=== PATIENT | female | born 1975 | race American Indian/Alaskan Native ===

== ENCOUNTER 2018-04-20 14:02 | Emergency (ER) | payer MEDICAID ==
[2018-04-20 14:26] VITALS: BP 141/84
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
--- NOTE | 2018-04-20 15:05 | XRay Report ---
LEFT ANKLE RADIOGRAPHS INDICATION: Pain. COMPARISON: None similar at this institution. FINDINGS: AP, lateral and oblique left ankle radiographs demonstrate intact mortise, malleoli and talar dome contour. Mild diffuse overlying soft tissue swelling though possible, lateral more than medial. Approximately 8 mm somewhat prominent posterior talar process. Moderate plantar and dorsal calcaneal spurs with mild anterior and posterior tibial plafond degenerative spurring also noted. CONCLUSION: Few degenerative changes noted with questionable soft tissue swelling, as described. Please correlate. Thank you for the opportunity to participate in this patient's care.
[2018-04-20] MEDS ORDERED: IBUPROFEN PO ONE (15:34)
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
== END 2018-04-20 16:40 | disposition home or self-care (01) ==
LOC: ED 14:02
DX: M76.62 Achilles tendinitis, left leg (principal); I10 Essential (primary) hypertension; Z88.5 Allergy status to narcotic agent; W51.XXXA Accidental striking against or bumped into by another person, initial encounter; Y93.01 Activity, walking, marching and hiking; Y92.89 Other specified places as the place of occurrence of the external cause; Y99.8 Other external cause status

== ENCOUNTER 2019-03-17 09:00 | Emergency (ER) | payer MEDICAID ==
[2019-03-17 09:53] LABS: Basophils % (Auto) 0.3 % (0.0-1.8); Eosinophils % (Auto) 0.5 % (0.0-4.3); Hematocrit 34.6 % (30.3-42.9); Hemoglobin 11.7 gm/dl (10.1-14.3); Lymphocytes # (Auto) 1.9 K/mm3 (1.2-5.4); Lymphocytes % (Auto) 19.8 % (13.4-35.0); Mean Corpuscular HGB Conc 34 % (30-34); Mean Corpuscular Volume 90 fl (79-97); Monocytes # (Auto) 0.8 K/mm3 (0.0-0.8); Monocytes % (Auto) 8.3 % (0.0-7.3); Platelet Count 449 K/mm3 (140-440); Red Blood Count 3.86 M/mm3 (3.65-5.03); Red Cell Distribution Width 13.5 % (13.2-15.2)
[2019-03-17 10:06] LABS: Alanine Aminotransferase 10 units/L (7-56); Albumin 3.5 g/dL (3.9-5); BUN/Creatinine Ratio 33; Blood Urea Nitrogen 13 mg/dL (7-17); Calcium 8.7 mg/dL (8.4-10.2); Hemolysis Index 8
[2019-03-17 10:43] LABS: Amorphous Crystals,Urine 1+; Bilirubin,Urine NEG (Negative); Blood,Urine NEG (Negative); Color,Urine Yellow (Yellow); Mucus,Urine FEW /HPF; Protein,Urine <15 mg/dL mg/dL (Negative)
--- NOTE | 2019-03-17 11:03 | Emergency Department Report ---
ED Abdominal Pain HPI - General Chief Complaint: Abdominal Pain Stated Complaint: VOMIT/STOMACH PAIN Time Seen by Provider: 03/17/19 10:43 Source: patient Mode of arrival: Ambulatory Limitations: No Limitations - History of Present Illness Initial Comments: 43 yo F w/ hx HTN, diverticulitis, presents to ED w/ abdominal pain since this morning. Pt states pain is diffuse. Denies fever, N/V/D, constipation, urinary frequency, dysuria. MD Complaint: abdominal pain -: This morning Location: diffuse Radiation: none Migration to: no migration Severity: moderate Quality: cramping Consistency: constant Improves With: nothing Worsens With: nothing Associated Symptoms: denies: nausea, vomiting, diarrhea, fever, constipation, dysuria - Related Data Previous Rx's Medication Instructions Recorded Last Taken Type Fluticasone [Flonase] 1 spray NS QDAY #1 bottle 04/20/18 Unknown Rx HYDROcodone/APAP 5-325 [[place] 1 each PO Q4HR PRN #12 tablet 04/20/18 Unknown Rx 5/325] Ibuprofen [Motrin] 800 mg PO Q8HR PRN #20 tablet 04/20/18 Unknown Rx Ciprofloxacin HCl [Ciprofloxacin 500 mg PO Q12HR 10 Days #20 tab 03/17/19 Unknown Rx TAB] Dicyclomine [Bentyl] 20 mg PO QID PRN #20 tablet 03/17/19 Unknown Rx Naproxen [Naprosyn] 500 mg PO BID #20 tablet 03/17/19 Unknown Rx metroNIDAZOLE [Flagyl] 500 mg PO Q12HR 10 Days #20 tab 03/17/19 Unknown Rx Allergies Allergy/AdvReac Type Severity Reaction Status Date / Time gabapentin Allergy Unknown Verified 04/20/18 14:27 tramadol Allergy Nausea Verified 04/20/18 14:28 ED Review of Systems ROS: Stated complaint: VOMIT/STOMACH PAIN Other details as noted in HPI Comment: All other systems reviewed and negative Constitutional: denies: chills, fever Gastrointestinal: abdominal pain. denies: nausea, vomiting, diarrhea, constipation Genitourinary: denies: dysuria, frequency ED Past Medical Hx - Past Medical History Previous Medical History?: Yes Hx Hypertension: Yes Additional medical history: diverticulitis - Surgical History Past Surgical History?: No - Social History Smoking Status: Never Smoker Substance Use Type: Alcohol - Medications Home Medications: Home Medications Medication Instructions Recorded Confirmed Last Taken Type Fluticasone [Flonase] 1 spray NS QDAY #1 bottle 04/20/18 Unknown Rx HYDROcodone/APAP 5-325 [[place] 1 each PO Q4HR PRN #12 tablet 04/20/18 Unknown Rx 5/325] Ibuprofen [Motrin] 800 mg PO Q8HR PRN #20 tablet 04/20/18 Unknown Rx Ciprofloxacin HCl [Ciprofloxacin 500 mg PO Q12HR 10 Days #20 tab 03/17/19 Unknown Rx TAB] Dicyclomine [Bentyl] 20 mg PO QID PRN #20 tablet 03/17/19 Unknown Rx Naproxen [Naprosyn] 500 mg PO BID #20 tablet 03/17/19 Unknown Rx metroNIDAZOLE [Flagyl] 500 mg PO Q12HR 10 Days #20 tab 03/17/19 Unknown Rx ED Physical Exam - General Limitations: No Limitations General appearance: alert, in no apparent distress, obese - Head Head exam: Present: atraumatic, normocephalic - Eye Eye exam: Present: normal appearance, EOMI - ENT ENT exam: Present: mucous membranes moist - Neck Neck exam: Present: normal inspection - Respiratory Respiratory exam: Present: normal lung sounds bilaterally. Absent: respiratory distress - Cardiovascular Cardiovascular Exam: Present: regular rate, normal rhythm - GI/Abdominal GI/Abdominal exam: Present: soft, tenderness (mild diffuse). Absent: distended - Extremities Exam Extremities exam: Present: normal inspection - Neurological Exam Neurological exam: Present: alert, oriented X3 - Psychiatric Psychiatric exam: Present: normal affect, normal mood - Skin Skin exam: Present: warm, dry, intact, normal color ED Course Vital Signs 03/17/19 03/17/19 09:16 12:33 Temperature 98.3 F Pulse Rate 70 71 Respiratory 18 16 Rate Blood Pressure 151/96 Blood Pressure 150/90 [Left] O2 Sat by Pulse 98 99 Oximetry ED Medical Decision Making - Lab Data Result diagrams: 03/17/19 09:27 03/17/19 09:27 - Radiology Data Radiology results: report reviewed, image reviewed - Medical Decision Making 43 yo F presents to Ed w/ abdominal pain. Pt with diffuse tenderness on exam. Reports symptoms feel the same as when she was previously diagnosed w/ diverticulitis. Vitals normal except for mildly elevated BP. Pt afebrile. Labs unremarkable. CT shows acute diverticulitis without abscess or perforation. Will discharge w/ prescriptions. GI follow-up advised. Return precautions given. - Differential Diagnosis diverticulitis, UTI, obstruction Critical care attestation.: If time is entered above; I have spent that time in minutes in the direct care of this critically ill patient, excluding procedure time. ED Disposition Clinical Impression: Acute diverticulitis Disposition: TO HOME OR SELFCARE Is pt being admited?: No Condition: Stable Instructions: Abdominal Pain (ED) Prescriptions: Dicyclomine [Bentyl] 20 mg PO QID PRN #20 tablet PRN Reason: abdominal pain Ciprofloxacin HCl [Ciprofloxacin TAB] 500 mg PO Q12HR 10 Days #20 tab metroNIDAZOLE [Flagyl] 500 mg PO Q12HR 10 Days #20 tab Naproxen [Naprosyn] 500 mg PO BID #20 tablet Referrals: PRIMARY CARE, [Primary Care Provider] - 3-5 Days [facility] [Provider Group] - 3-5 Days [facility] [Provider Group] - 3-5 Days Forms: Work/School Release Form(ED) Time of Disposition: 12:19
[2019-03-17] MEDS ORDERED: DICYCLOMINE 20 MG TAB PO ONE (11:08)
--- NOTE | 2019-03-17 12:00 | Cat Scan Report ---
CT abdomen pelvis wo con INDICATION / CLINICAL INFORMATION: abd pain, hx diverticulitis. TECHNIQUE: All CT scans at this location are performed using CT dose reduction for ALARA by means of automated e xposure control. COMPARISON: None available. FINDINGS: Limited lower thoracic images are negative. ABDOMEN: The gallbladder, liver, spleen, pancreas and adrenal glands are normal Punctate intrarenal calcifications are seen in the left kidney. No hydronephrosis. Right kidney is normal. Pelvis: The appendix is normal. There are multiple diverticula seen throughout the colon. The sigmoid colon is thickened and edematous with mesenteric edema. The findings would be consistent with acute sigmoid diverticulitis. No dependent fluid collections or pneumoperitoneum. Degenerative changes are seen in the lower thoracic and lumbar spine. IMPRESSION: 1. Acute uncomplicated sigmoid diverticulitis. 2. Left nephrolithiasis without hydronephrosis. Signer Name: Chuckie Ziegler MD Signed: 03/17/2019 11:55 AM Workstation Name: [email or web address]
[2019-03-17 12:34] VITALS: BP 150/90
== END 2019-03-17 12:33 | disposition home or self-care (01) ==
LOC: ED 09:00
DX: K57.92 Diverticulitis of intestine, part unspecified, without perforation or abscess without bleeding (principal); I10 Essential (primary) hypertension; Z79.899 Other long term (current) drug therapy; Z88.6 Allergy status to analgesic agent
CPT/HCPCS: 36415; 74176; 80053; 81001; 83690; 84703; 85025

== ENCOUNTER 2020-01-19 21:17 | Emergency (ER) | payer MEDICAID | END 2020-01-19 22:00 | disposition left against medical advice (07) | LOC: ED 21:17 | DX: R10.30 Lower abdominal pain, unspecified (principal); Z53.21 Procedure and treatment not carried out due to patient leaving prior to being seen by health care provider ==

== ENCOUNTER 2020-11-18 09:05 | Emergency (ER) | payer MEDICAID ==
[2020-11-18 09:17] VITALS: BP 131/74
[2020-11-18] MEDS ORDERED: BENZONATATE 100 MG CAP PO ONE (09:17)
[2020-11-18] MEDS ORDERED: IBUPROFEN 800 MG TAB PO ONE (09:17)
--- NOTE | 2020-11-18 10:05 | Emergency Department Report ---
- General Chief Complaint: Upper Respiratory Infection Stated Complaint: FLU LIKE SYMPTOMS Time Seen by Provider: 11/18/20 09:10 Source: patient Mode of arrival: Ambulatory Limitations: No Limitations - History of Present Illness Initial Comments: This is a 45-year-old female nontoxic, well nourished in appearance, no acute signs of distress presents to the ED with c/o of productive cough, subjective fever, chills, body aches, rhinorrhea, nasal congestion x several days. Patient describes productive cough as yellow mucus production. Patient denies any sick contacts. Patient denies any recent travels, long car, recent hospital stays. Patient denies any calf pain or calf tenderness. Patient denies any chest pain, short of breath, fever, chills, nausea, vomiting, hemoptysis, numbness, tingling, headache or stiff neck. Patient stated allergies to gabapentin and tramadol. Denies any significant PMH. Patient stated she is not Covid vaccinated. MD Complaint: fever, cough, rhinorrhea, nasal congestion -: days(s) Severity: mild Severity scale (0 -10): 3 Quality: aching Consistency: constant Improves With: nothing Worsens With: nothing Associated Symptoms: fever, chills, rhinorrhea, nasal congestion, cough. denies: myalgias, diaphoresis, headache, sore throat, stiff neck, chest pain, shortness of breath, abdominal pain, nausea, vomiting, diarrhea, dysuria, rash, confusion, right sweats, weight loss, epistaxis, hoarseness, ear pain Treatments Prior to Arrival: none - Related Data Previous Rx's Medication Instructions Recorded Last Taken Type Fluticasone [Flonase] 1 spray NS QDAY #1 bottle 04/20/18 Unknown Rx HYDROcodone/APAP 5-325 [[place] 1 each PO Q4HR PRN #12 tablet 04/20/18 Unknown Rx 5/325] Ibuprofen [Motrin] 800 mg PO Q8HR PRN #20 tablet 04/20/18 Unknown Rx Ciprofloxacin HCl [Ciprofloxacin 500 mg PO Q12HR 10 Days #20 tab 03/17/19 Unknown Rx TAB] Dicyclomine [Bentyl] 20 mg PO QID PRN #20 tablet 03/17/19 Unknown Rx Naproxen [Naprosyn] 500 mg PO BID #20 tablet 03/17/19 Unknown Rx metroNIDAZOLE [Flagyl] 500 mg PO Q12HR 10 Days #20 tab 03/17/19 Unknown Rx Benzonatate [Tessalon Perles] 100 mg PO Q12H PRN #12 capsule 11/18/20 Unknown Rx Allergies Allergy/AdvReac Type Severity Reaction Status Date / Time gabapentin Allergy Unknown Verified 11/18/20 09:09 tramadol Allergy Nausea Verified 11/18/20 09:09 ED Review of Systems ROS: Stated complaint: FLU LIKE SYMPTOMS Other details as noted in HPI Comment: All other systems reviewed and negative Constitutional: chills, fever Eyes: denies: eye pain, eye discharge, vision change ENT: congestion. denies: ear pain, throat pain Respiratory: cough. denies: shortness of breath, wheezing Cardiovascular: denies: chest pain, palpitations Endocrine: no symptoms reported Gastrointestinal: denies: abdominal pain, nausea, diarrhea Genitourinary: denies: urgency, dysuria, discharge Musculoskeletal: denies: back pain, joint swelling, arthralgia Skin: denies: rash, lesions Neurological: denies: headache, weakness, paresthesias Psychiatric: denies: anxiety, depression Hematological/Lymphatic: denies: easy bleeding, easy bruising ED Past Medical Hx - Past Medical History Hx Hypertension: Yes Additional medical history: diverticulitis - Social History Smoking Status: Never Smoker Substance Use Type: Alcohol - Medications Home Medications: Home Medications Medication Instructions Recorded Confirmed Last Taken Type Fluticasone [Flonase] 1 spray NS QDAY #1 bottle 04/20/18 Unknown Rx HYDROcodone/APAP 5-325 [[place] 1 each PO Q4HR PRN #12 tablet 04/20/18 Unknown Rx 5/325] Ibuprofen [Motrin] 800 mg PO Q8HR PRN #20 tablet 04/20/18 Unknown Rx Ciprofloxacin HCl [Ciprofloxacin 500 mg PO Q12HR 10 Days #20 tab 03/17/19 Unknown Rx TAB] Dicyclomine [Bentyl] 20 mg PO QID PRN #20 tablet 03/17/19 Unknown Rx Naproxen [Naprosyn] 500 mg PO BID #20 tablet 03/17/19 Unknown Rx metroNIDAZOLE [Flagyl] 500 mg PO Q12HR 10 Days #20 tab 03/17/19 Unknown Rx Benzonatate [Tessalon Perles] 100 mg PO Q12H PRN #12 capsule 11/18/20 Unknown Rx ED Physical Exam - General Limitations: No Limitations General appearance: alert, in no apparent distress - Head Head exam: Present: atraumatic, normocephalic - Eye Eye exam: Present: normal appearance - ENT ENT exam: Present: normal exam, normal orophraynx - Neck Neck exam: Present: normal inspection, full ROM. Absent: tenderness, m eningismus, lymphadenopathy - Respiratory Respiratory exam: Present: normal lung sounds bilaterally. Absent: respiratory distress, wheezes, rales, rhonchi, stridor, chest wall tenderness, accessory muscle use, decreased breath sounds, prolonged expiratory - Cardiovascular Cardiovascular Exam: Present: regular rate, normal rhythm, normal heart sounds. Absent: bradycardia, tachycardia, irregular rhythm, systolic murmur, diastolic murmur, rubs, gallop - GI/Abdominal GI/Abdominal exam: Present: soft, normal bowel sounds. Absent: distended, tenderness, guarding, rebound, rigid, diminished bowel sounds - Extremities Exam Extremities exam: Present: full ROM - Back Exam Back exam: Present: normal inspection, full ROM. Absent: tenderness, CVA tenderness (R), CVA tenderness (L), muscle spasm, paraspinal tenderness, vertebral tenderness, rash noted - Neurological Exam Neurological exam: Present: alert, oriented X3, normal gait - Psychiatric Psychiatric exam: Present: normal affect, normal mood - Skin Skin exam: Present: warm, dry, intact, normal color. Absent: rash ED Course Vital Signs 11/18/20 09:11 Temperature 97.9 F Pulse Rate 61 Respiratory 18 Rate Blood Pressure 131/74 O2 Sat by Pulse 97 Oximetry - Reevaluation(s) Reevaluation #1: 11/18/20 10:06 Patient is speaking in full sentences with no signs of distress noted. ED Medical Decision Making - Radiology Data [facility] [address] [place] [address] XRay Report Signed Patient: PADMINI MENESES MR#: [id number] : 1975 Acct:[id number] Age/Sex: 45 / F ADM Date: 11/18/20 Loc: ED Attending Dr: Ordering Physician: WANDA SCHMITZ NP Date of Service: 11/18/20 Procedure(s): XR chest routine 2V Accession Number(s): [id number] cc: WANDA SCHMITZ NP Fluoro Time In Minutes: CHEST 2 VIEWS INDICATION / CLINICAL INFORMATION: cough. COMPARISON: None available. FINDINGS: SUPPORT DEVICES: None. HEART / MEDIASTINUM: No significant abnormality. LUNGS / PLEURA: Mild increased density seen in the right lower lung which may be vascular however nonspecific No pneumothorax. Signer Name: Michel Gamble MD Signed: 11/18/2020 10:04 AM Workstation Name: [id number] Transcribed By: CW Dictated By: JEREMI GAMBLE MD Electronically Authenticated By: JEREMI GAMBLE MD Signed Date/Time: 11/18/20 1004 DD/ 1002 TD/TT: - Medical Decision Making This is a 45-year-old female that presents with suspected Covid patient is stable and was examined by me. Chest x-ray has been obtained and dictated by radiologist with normal exam. Patient is notified of x-ray results with no questions noted. Patient does meet clinical concerns of COVID-19 and patient was instructed and educated on signs and symptoms and to self quarantine and seek medical attention as soon as possible if symptoms if symptoms worsen and continue. Patient was instructed to increase hydration, rest and take Tyleonl for fever episodes. Patient received Motrin and tesslone perrls in the ED. Vitals stable. Patient is nonfebrile and normal heart rate. Patient was instruc dewey Follow-up with a primary care doctor in 3-5 days or if symptoms worsen and continue return to emergency room as soon as possible. At time time of discharge, the patient does not seem toxic or ill in appearance. No acute signs of distress noted. Patient agrees to discharge treatment plan of care. No further questions noted by the patient.nt. Critical care attestation.: If time is entered above; I have spent that time in minutes in the direct care of this critically ill patient, excluding procedure time. ED Disposition Clinical Impression: Suspected COVID-19 virus infection Disposition: HOME / SELF CARE / HOMELESS Is pt being admited?: No Does the pt Need Aspirin: No Condition: Stable Instructions: COVID-19 Frequently Asked Questions, COVID-19 Additional Instructions: Follow-up with a primary care doctor in 3-5 days or if symptoms worsen and continue return to emergency room as soon as possible. As educated and instructed to you must self quarantine yourself and people that you have been in close contact with similar symptoms for the next 14 days. Please see your nearest health department or primary care doctor that you are referred to for COVID testing. Increased rest, hydration, and take Tylenol as prescribed for fever episode. Prescriptions: Benzonatate [Tessalon Perles] 100 mg PO Q12H PRN #12 capsule PRN Reason: Cough Referrals: PRIMARY CAREMD [Primary Care Provider] - 3-5 Days LAYTON CEBALLOS MD [Staff Physician] - 3-5 Days Time of Disposition: 10:40
--- NOTE | 2020-11-18 10:08 | XRay Report ---
CHEST 2 VIEWS INDICATION / CLINICAL INFORMATION: cough. COMPARISON: None available. FINDINGS: SUPPORT DEVICES: None. HEART / MEDIASTINUM: No significant abnormality. LUNGS / PLEURA: Mild increased density seen in the right lower lung which may be vascular however non specific No pneumothorax. Signer Name: Michel Gamble MD Signed: 11/18/2020 10:04 AM Workstation Name: [id number]
== END 2020-11-18 10:47 | disposition home or self-care (01) ==
LOC: ED 09:05
DX: R50.9 Fever, unspecified (principal); Z20.822 Contact with and (suspected) exposure to COVID-19; I10 Essential (primary) hypertension; K57.92 Diverticulitis of intestine, part unspecified, without perforation or abscess without bleeding; Z88.5 Allergy status to narcotic agent; Z88.9 Allergy status to unspecified drugs, medicaments and biological substances
CPT/HCPCS: 71046; 99283